=== PATIENT | female | born 1985 | race Caucasian/White ===

== ENCOUNTER → 2019-07-16 | Day surgery (SDC) | payer OTHER ==
[~2019-07-16] MED LIST: ACETAMINOPHEN 1000 MG/100 ML 100 ML IV ONE; BUPIVACAINE 0.25%/EPI 30ML SDV INJ ONE; BUPIVACAINE 0.5%/EPI 30 ML SDV INJ ONE; DEXAMETHASONE SOD PHOS INJ 4 MG/ML VIAL ONE; FENTANYL CITRATE/PF 100MCG/2 ML INJ ONE; INDIGOTINDISULFONATE SODIUM 8 MG/1 ML IJ ONE; LIDOCAINE HCL 2% LOCAL INJ 5 ML SDV VIAL INJ ONE; MICROFIBRILLER COLLAGEN HEMOSTAT 1 GM POWDER TP ONE; MIDAZOLAM HCL 2 MG/2 ML VIAL ONE; ONDANSETRON HCL INJ 2MG/ML 2ML 2 MG/ML VIAL ONE; PROPOFOL IV EMULSION 10 MG/ML 20 ML VIAL ONE; ROCURONIUM BROMIDE 10 MG/ML 5ML VIAL ONE; SCOPOLAMINE 1.5 MG PATCH ONE; SEVOFLURANE INHAL SOLN 250 ML PEN BTL ONE; SODIUM CHLORIDE 0.9% 100 ML ONE; THROMBIN FOR SOLN 5,000 UNIT VIAL ONE
[2019-07-16 11:28] LABS: BASOPHILS % 0.6 % (0.0-1.0); EOSINOPHILS % 0.6 % (0.0-6.0); HEMATOCRIT 41.1 % (34.2-44.1); HEMOGLOBIN 13.1 g/dL (12.0-16.0); LYMPHOCYTES # (AUTO) 2.2 (1.0-3.2); LYMPHOCYTES % 34.9 % (18.0-39.1); MEAN CORPUSCULAR HEMOGLOBIN 29.6 pg (28-32); MEAN CORPUSCULAR HGB CONC 31.9 g/dL (31-35); MEAN CORPUSCULAR VOLUME 92.8 fL (81-99); MONOCYTES # (AUTO) 0.5 (0.2-0.8); MONOCYTES % 8.3 % (4.4-11.3); NEUTROPHILS # (AUTO) 3.5 (2.1-6.9); NEUTROPHILS % 55.1 % (38.7-80.0); PLATELET COUNT 252 x10e3/uL (140-360); RED BLOOD COUNT 4.43 x10e6/uL (3.6-5.1); RED CELL DISTRIBUTION WIDTH 13.2 % (11.7-14.4)
[2019-07-16 17:10] VITALS: BP 112/65
--- NOTE | 2019-07-28 21:16 | Operative Report ---
DATE OF PROCEDURE: 07/16/2019 SURGEON: Sharee Sands MD DUST BOX TENDER: None. PREOPERATIVE DIAGNOSES: Chronic pelvic pain and right ovarian cyst. POSTOPERATIVE DIAGNOSES: Endometriosis and right ovarian endometrioma. PROCEDURE PERFORMED: Diagnostic laparoscopy with ablation of endometriosis, lysis of adhesions for approximately 30 minutes, right ovarian cystectomy, and peritoneal biopsies. ANESTHESIA: General. ESTIMATED BLOOD LOSS: Minimal. COMPLICATIONS: None. FINDINGS: Bimanual exam revealed a small anteverted uterus. On laparoscopic findings included multiple endometriosis implants across the ovarian beds and peritoneum, especially in the pelvic cul-de-sac as well as an approximately 2 to 3 cm right ovarian cyst, which appeared to be an endometrioma or chocolate cyst. There were also many adhesions noted within the pelvis, likely secondary to endometriosis, mainly between the ovaries and pelvic sidewalls and fallopian tubes as well as many within the pelvic cul-de-sac. SPECIMENS: Peritoneal biopsies and right ovarian cyst wall. INDICATIONS: The patient is a 34-year-old 0 with chronic pelvic pain, suspected endometriosis and a right ovarian cyst. PROCEDURE NOTE: Prior to the procedure, the risks, benefits, indications, and alternatives were discussed and the patient agreed to proceed. Following anesthesia, the patient was placed in modified dorsal lithotomy position in [facility] and prepping and draping was performed in typical sterile fashion. A time-out was done. A Livingston catheter was placed in the bladder. The infraumbilical port site was identified and injected with solution of 0.25% Marcaine with epinephrine and a small vertical infraumbilical incision was made with a scalpel. A 5 mm trocar was placed at the umbilicus under direct visualization with a 5 mm laparoscope. Survey of the abdomen and pelvis was done with the findings noted above. Two additional ports were then placed in the patient's left lower quadrant after injection with Marcaine. A 5 mm port was placed approximately 4 cm anterior and superior to the ASIS and a 5 mm port approximately 5 fingerbreadths above this. Both were inserted atraumatically under direct visualization with the laparoscope. After surveying the pelvis, lysis of adhesions was performed between the pelvic sidewalls and the bilateral adnexa as well as the sigmoid colon. Approximately 30 minutes was spent in performing this lysis of adhesions. Biopsies were also taken at this point from multiple sites along the peritoneum, especially in the pelvic cul-de-sac. These biopsies were taken using laparoscopic scissors as well as the LigaSure device and all sites were made hemostatic with monopolar cautery. Additional endometriosis implants were then ablated again using monopolar cautery. The pelvis was irrigated and all the sites were found to be hemostatic. Attention was then turned to the right ovarian cyst, which appeared to be located between the pelvic sidewall and cul-de-sac and the right ovary. When the cyst was entered into during the procedure, a dark old blood or chocolate-appearing fluid was released from the cyst, which was then completely drained and irrigated with the suction [employer]. The LigaSure device was used to help remove the cyst wall from this ovary, which was sent to pathology. All sites were then found to be hemostatic. All ports were then removed under direct visualization and abdomen was desufflated. The skin incisions were closed with 3-0 Monocryl in a subcuticular fashion and all port sites were covered with Dermabond. All sponge, needle, instrument, and lap counts were correct x2 at the end of the procedure. The patient was taken to recovery room in stable condition. MD NAVEED Calderón/MICA /[id number]
== END | disposition home or self-care (01) ==
LOC: OR 10:33
PROVIDERS: ATTEND Obstetrics & Gynecology Obstetrics
DX: N80.1 Endometriosis of ovary (principal); N80.3 Endometriosis of pelvic peritoneum; K66.0 Peritoneal adhesions (postprocedural) (postinfection); R10.2 Pelvic and perineal pain; Z01.812 Encounter for preprocedural laboratory examination; K21.9 Gastro-esophageal reflux disease without esophagitis
CPT/HCPCS: 36415; 49321; 49329; 58662; 58999; 84702; 85025; 88305; J0131; J1100; J2001; J2250; J2405; J2704; J3010; J7050; 88304